=== PATIENT | female | born 1995 | race African-American/Black ===

== ENCOUNTER 2017-11-03 11:28 | Inpatient (IN) ==
[2017-11-03 13:14] LABS: Apearance,Urine CLEAR (Clear); Bacteria,Urine Occasional /HPF (Few); Bilirubin,Urine Negative (Negative); Blood, Urine Negative (Negative); Glucose,Urine (UA) Negative (Negative); Ketones,Urine Negative (Negative); Nitrite,Urine Negative (Negative); Protein,Urine Negative; RBC,Urine <1 /HPF (0-4); Squamous Epithelial Cell,Urine Occasional /HPF (0-10); Urine Color Straw (Yellow); Urine Specific Gravity 1.001 (1.001-1.035); Urine Urobilinogen < 2.0 EU/DL (0.2-1.0)
[2017-11-03] MEDS ORDERED: LACTATED RINGERS 1,000 ML IV ONE (14:00)
[2017-11-03] MEDS ORDERED: BUTORPHANOL 2 MG/ML VIAL IV ONE (14:11)
[2017-11-03] MEDS: LACTATED RINGERS 1,000 ML IV SCH (15:25)
[2017-11-03] MEDS: BUTORPHANOL 2 MG/ML VIAL IV PRN (19:25)
[2017-11-04] MEDS ORDERED: ONDANSETRON 4 MG/2 ML VIAL IV PRN ×3 (00:12→21:13)
[2017-11-04] MEDS ORDERED: ceFAZolin 1,000 MG in SYRINGE 1 EACH IV SCH (01:30)
[2017-11-04] MEDS ORDERED: AMPICILLIN INJ 2,000 MG in SODIUM CHLORIDE 0.9% 100 ML IV ONE (02:00)
[2017-11-04] MEDS ORDERED: OXYTOCIN/LR 20 UNIT/1,000 ML BAG IV SCH (02:00)
[2017-11-04 02:06] LABS: Basophils % 0.5 % (0.0-0.8); Eosinophils # 0.1 10*3/uL (0.0-0.87); Eosinophils % 1.3 % (0.00-10.9); Hematocrit 37.6 VOL% (35.7-47.0); Immature Granulocytes % 1.4 %; Immature Granulocytes Absolute 0.11 #; Lymphocytes # 1.5 10*3/uL (1.4-4.0); Lymphocytes % 18.5 % (21.3-54.2); Mean Corpuscular HGB Conc 34.6 GM/DL (32-36); Mean Corpuscular Hemoglobin 31 PG (27-34); Mean Corpuscular Volume 88.5 FL (87-102); Mean Platelet Volume 10.4 FL (9.6-12.0); Monocytes # 1.2 10*3/uL (0.11-0.8); Monocytes % 14.6 % (1.7-12.7); Neutrophils % 63.7 % (38.7-73.9); Platelet Count 240 T/CUMM (130-400); Red Blood Count 4.25 MC/CUMM (3.8-5.5); Red Cell Distribution Width 13.6 % (9.3-17.3); White Blood Count 7.9 T/CUMM (4-12)
[2017-11-04 02:12] LABS: Alanine Aminotransferase 16 U/L (13-56); Albumin 2.7 G/DL (3.4-5.0); Alkaline Phosphatase 246 U/L (45-117); Aspartate Amino Transferase 18 U/L (0-37); Bilirubin,Total < 0.39 MG/DL (0.2-1.0); Blood Urea Nitrogen 3 MG/DL (7-18); Calcium 8.7 MG/DL (8.5-10.1); Glucose 94 MG/DL (74-106); Osmolality,Calculated 279.1 MOS/KG (273-304); Potassium 2.6 MMOL/L (3.5-5.1); Sodium 142 MMOL/L (136-145); Total Protein 5.7 G/DL (6.4-8.3)
[2017-11-04] MEDS: BUTORPHANOL 2 MG/ML VIAL IV PRN ×2 (03:10→06:53)
[2017-11-04] MEDS: AMPICILLIN INJ 1,000 MG in SODIUM CHLORIDE 0.9% 100 ML IV SCH ×3 (05:56→14:22)
[2017-11-04] MEDS: LACTATED RINGERS 1,000 ML IV SCH (05:57)
[2017-11-04] MEDS ORDERED: LACTATED RINGERS 1,000 ML IV ONE (07:28)
[2017-11-04] MEDS ORDERED: FAMOTIDINE 20 MG/2 ML VIAL IV ONE (07:28)
[2017-11-04] MEDS ORDERED: ONDANSETRON 4 MG/2 ML VIAL IV ONE (07:28)
[2017-11-04] MEDS ORDERED: CITRIC ACID/SODIUM CITRATE 30 ML UDCUP PO ONE (07:28)
[2017-11-04] MEDS ORDERED: PROMETHAZINE 25 MG/1 ML VIAL IM ONE (07:28)
[2017-11-04] MEDS ORDERED: hydrOXYzine HCL 25 MG/1 ML VIAL IM PRN (07:28)
[2017-11-04] MEDS ORDERED: ePHEDrine 50 MG/ML AMP IV PRN (07:28)
[2017-11-04] MEDS ORDERED: diphenhydrAMINE 50 MG/1 ML VIAL IV PRN ×2 (07:28)
[2017-11-04] MEDS ORDERED: fentaNYL 2 MCG/ROPIV 0.2% EPID 150 ML EPIDURAL SCH (07:30)
[2017-11-04 10:28] LABS: Amorphous Crystals,Urine Occasional /HPF (Few); Apearance,Urine CLEAR (Clear); Bacteria,Urine Occasional /HPF (Few); Bilirubin,Urine Negative (Negative); Blood, Urine Small mg/dL (Negative); Glucose,Urine (UA) Negative (Negative); Ketones,Urine Negative (Negative); Mucus,Urine Occasional /LPF (Occasional); Nitrite,Urine Negative (Negative); Protein,Urine Negative; RBC,Urine 3 /HPF (0-4); Squamous Epithelial Cell,Urine Occasional /HPF (0-10); Urine Color Straw (Yellow); Urine Specific Gravity 1.002 (1.001-1.035); Urine Urobilinogen < 2.0 EU/DL (0.2-1.0); WBC,Urine 2 /HPF (0-6)
[2017-11-04] MEDS ORDERED: ceFAZolin 2,000 MG in PREMIX 1 EACH IV ONE (16:34)
[2017-11-04] MEDS ORDERED: OXYTOCIN/LR 30 UNIT/1,000 ML BAG IV ONE (16:37)
[2017-11-04] MEDS ORDERED: OXYTOCIN 10 UNIT/ML VIAL IM ONE (16:37)
[2017-11-04] MEDS ORDERED: MIDAZOLAM 2 MG/2 ML VIAL ONE (18:01)
[2017-11-04] MEDS ORDERED: fentaNYL 100 MCG/2 ML VIAL ONE (18:01)
[2017-11-04] MEDS ORDERED: KETAMINE 500 MG/10 ML VIAL ONE (18:02)
[2017-11-04] MEDS ORDERED: MORPHINE 10 MG/10 ML VIAL ONE (18:02)
[2017-11-04] MEDS ORDERED: LIDOCAINE MPF 2% /EPI 20 ML VIAL ONE (18:02)
[2017-11-04 18:05] LABS: Cord Arterial Blood HCO3 26.7 MMOL/L
[2017-11-04 18:08] LABS: Cord Venous Blood HCO3 22.2 MMOL/L; Cord Venous Blood PCO2 41.4 MMHG; Cord Venous Blood PO2 34.1
[2017-11-04] MEDS ORDERED: HYDROmorphone 2 MG/1 ML VIAL IV PRN (19:36)
[2017-11-04] MEDS ORDERED: LACTATED RINGERS 1,000 ML IV SCH (21:13)
[2017-11-04] MEDS ORDERED: ACETAMINOPHEN 325 MG TABLET PO PRN (21:13)
[2017-11-04] MEDS ORDERED: OXYTOCIN/LR 20 UNIT/1,000 ML BAG IV ONE (21:13)
[2017-11-04] MEDS ORDERED: RHO(D) IMMUNE GLOBULIN 300 MCG SYRINGE IM ONE (21:13)
[2017-11-04] MEDS ORDERED: IBUPROFEN 800 MG TABLET PO PRN (21:13)
[2017-11-04] MEDS ORDERED: PROMETHAZINE INJ 25 MG in SODIUM CHLORIDE 0.9% 50 ML IV PRN (22:11)
[2017-11-04] MEDS ORDERED: MEPERIDINE 25 MG/1 ML VIAL IV PRN (22:12)
[2017-11-04] MEDS ORDERED: PROMETHAZINE 25 MG/1 ML VIAL IM PRN (22:13)
[2017-11-04] MEDS: DOCUSATE SODIUM 100 MG CAPSULE PO SCH (22:40)
[2017-11-05 01:10] LABS: Basophils # 0.1 10*3/uL (0.0-0.2); Basophils % 0.2 % (0.0-0.8); Hematocrit 32.4 VOL% (35.7-47.0); Hemoglobin 11.1 GM/DL (12.0-16.0); Immature Granulocytes % 1.5 %; Lymphocytes # 1.3 10*3/uL (1.4-4.0); Lymphocytes % 6.7 % (21.3-54.2); Mean Corpuscular HGB Conc 34.3 GM/DL (32-36); Mean Corpuscular Hemoglobin 31 PG (27-34); Mean Corpuscular Volume 89.3 FL (87-102); Mean Platelet Volume 10.2 FL (9.6-12.0); Monocytes # 1.6 10*3/uL (0.11-0.8); Monocytes % 7.8 % (1.7-12.7); Neutrophils # 16.8 10*3/uL (1.4-7.4); Neutrophils % 83.8 % (38.7-73.9); Platelet Count 231 T/CUMM (130-400); Red Blood Count 3.63 MC/CUMM (3.8-5.5); Red Cell Distribution Width 13.9 % (9.3-17.3); White Blood Count 20.1 T/CUMM (4-12)
[2017-11-05] MEDS ORDERED: KETOROLAC 30 MG/1 ML VIAL IV PRN (01:18)
[2017-11-05 01:38] LABS: Albumin 2.4 G/DL (3.4-5.0); Bilirubin,Total 0.5 MG/DL (0.2-1.0); Calcium 8.8 MG/DL (8.5-10.1); Osmolality,Calculated 295.9 MOS/KG (273-304); Potassium 2.9 MMOL/L (3.5-5.1); Total Protein 5.3 G/DL (6.4-8.3)
[2017-11-05] MEDS: ceFAZolin 1,000 MG in SYRINGE 1 EACH IV SCH ×2 (01:42→09:10)
[2017-11-05 02:12] LABS: Lymphocytes 11 % (20-55); Platelet Estimate Normal; Segmented Neutrophils 84 % (50-85); Total Cells Counted 100
[2017-11-05] MEDS ORDERED: METOCLOPRAMIDE 10 MG/2 ML VIAL IV SCH (08:00)
[2017-11-05] MEDS: DOCUSATE SODIUM 100 MG CAPSULE PO SCH ×2 (09:06→21:42)
[2017-11-05] MEDS: MAGNESIUM HYDROXIDE SUSP 30 ML UDCUP PO PRN ×2 (09:07→21:43)
[2017-11-05] MEDS: SIMETHICONE CHEW 80 MG TABLET PO PRN ×2 (09:07→21:43)
[2017-11-05] MEDS: MULTIVITAMIN (PRENATAL) TABLET PO SCH (09:30)
[2017-11-05 10:39] LABS: Basophils % 0.2 % (0.0-0.8); Eosinophils % 0.1 % (0.00-10.9); Hematocrit 27.4 VOL% (35.7-47.0); Hemoglobin 9.5 GM/DL (12.0-16.0); Immature Granulocytes Absolute 0.17 #; Lymphocytes # 1.8 10*3/uL (1.4-4.0); Mean Corpuscular HGB Conc 34.7 GM/DL (32-36); Mean Corpuscular Hemoglobin 31 PG (27-34); Mean Corpuscular Volume 89.3 FL (87-102); Mean Platelet Volume 10.2 FL (9.6-12.0); Monocytes # 1.4 10*3/uL (0.11-0.8); Monocytes % 8.3 % (1.7-12.7); Neutrophils # 13.3 10*3/uL (1.4-7.4); Neutrophils % 79.4 % (38.7-73.9); Platelet Count 211 T/CUMM (130-400); Red Blood Count 3.07 MC/CUMM (3.8-5.5); Red Cell Distribution Width 14.1 % (9.3-17.3); White Blood Count 16.7 T/CUMM (4-12)
[2017-11-05] MEDS ORDERED: MAGNESIUM CITRATE 300 ML BOTTLE PO ONE (17:30)
[2017-11-05] MEDS: POTASSIUM CHLORIDE 20 MEQ TABLET PO SCH (21:42)
[2017-11-05] MEDS: FERROUS SULFATE 325 MG TABLET PO SCH (21:43)
[2017-11-06] MEDS ORDERED: BISACODYL 10 MG SUPP RECTAL PRN (06:52)
[2017-11-06 08:01] VITALS: BP 134/79
[2017-11-06] MEDS: DOCUSATE SODIUM 100 MG CAPSULE PO SCH (08:08)
[2017-11-06] MEDS: POTASSIUM CHLORIDE 20 MEQ TABLET PO SCH ×2 (08:08→09:44)
[2017-11-06] MEDS: FERROUS SULFATE 325 MG TABLET PO SCH (08:08)
[2017-11-06] MEDS: MULTIVITAMIN (PRENATAL) TABLET PO SCH ×2 (08:08→09:44)
[2017-11-06] MEDS ORDERED: INFLUENZA VIRUS VACCINE 0.5 ML SYRINGE IM ONE (10:45)
[2017-11-06] MEDS ORDERED: DIPH/TET/ACEL PERT BOOSTER VACCINE 0.5 ML VIAL IM ONE (10:45)
== END 2017-11-06 12:15 | disposition home or self-care (01) | DRG 540 ==
LOC: N.LD 11:28 → N.LDOUT 11:28 → N.LD 17:22 → N.OB 11-04 21:10
PROVIDERS: ADMIT Obstetrics & Gynecology; ATTEND Obstetrics & Gynecology
PROC: LDCSECT (ICD-10-PCS; 2017-11-04 17:00)

== ENCOUNTER 2021-06-26 05:51 | Inpatient (IN) ==
[2021-06-26] MEDS ORDERED: FAMOTIDINE 20 MG/2 ML VIAL IV ONE (06:03)
[2021-06-26] MEDS ORDERED: CITRIC ACID/SODIUM CITRATE 30 ML UDCUP PO ONE (06:03)
[2021-06-26] MEDS ORDERED: LACTATED RINGERS 1,000 ML IV ONE (06:05)
[2021-06-26] MEDS ORDERED: PROMETHAZINE 25 MG/1 ML VIAL IM PRN (06:05)
[2021-06-26] MEDS ORDERED: diphenhydrAMINE 50 MG/1 ML VIAL IV PRN ×2 (06:05)
[2021-06-26] MEDS ORDERED: hydrOXYzine HCL 25 MG/1 ML VIAL IM PRN (06:05)
[2021-06-26] MEDS ORDERED: ePHEDrine 50 MG/ML VIAL IV PRN (06:05)
[2021-06-26] MEDS ORDERED: miSOPROStoL 200 MCG TABLET ONE (06:11)
[2021-06-26] MEDS ORDERED: TRANEXAMIC ACID 1,000 MG/10 ML VIAL ONE (06:11)
[2021-06-26] MEDS ORDERED: METHYLERGONOVINE 0.2 MG/1 ML AMP ONE (06:12)
[2021-06-26] MEDS ORDERED: SODIUM CHLORIDE 0.9% 0 ML IV ONE (06:12)
[2021-06-26] MEDS ORDERED: CARBOPROST TROMETHAMINE 250 MCG/ML AMP IM ONE (06:12)
[2021-06-26 06:25] LABS: Basophils % 0.4 % (0.0-0.8); Eosinophils # 0.1 10*3/uL (0.0-0.87); Eosinophils % 1.2 % (0.00-10.9); Hematocrit 32.6 VOL% (35.7-47.0); Hemoglobin 10.3 GM/DL (12.0-16.0); Immature Granulocytes % 2.4 %; Lymphocytes # 1.8 10*3/uL (1.4-4.0); Lymphocytes % 21.5 % (21.3-54.2); Mean Corpuscular HGB Conc 31.6 GM/DL (32-36); Mean Corpuscular Volume 89.6 FL (87-102); Mean Platelet Volume 9.5 FL (9.6-12.0); Monocytes % 10.1 % (1.7-12.7); Neutrophils % 64.4 % (38.7-73.9); Platelet Count 242 T/CUMM (130-400); Red Blood Count 3.64 MC/CUMM (3.8-5.5); White Blood Count 8.2 T/CUMM (4-12)
[2021-06-26 06:55] LABS: Albumin 2.7 G/DL (3.4-5.0); Bilirubin,Total 0.4 MG/DL (0.20-1.00); Osmolality,Calculated 271.7 MOS/KG (273-304); Total Protein 6.5 G/DL (6.4-8.2)
[2021-06-26] MEDS ORDERED: ceFAZolin 2,000 MG/50 ML DUPLEX IV ONE (07:00)
[2021-06-26] MEDS ORDERED: OXYTOCIN/LR 20 UNIT/1,000 ML BAG IV ONE ×3 (07:30→09:28)
[2021-06-26] MEDS ORDERED: BUPIVACAINE SPINAL 0.75% 2 ML AMP SPINAL ONE (07:45)
[2021-06-26] MEDS ORDERED: ONDANSETRON 4 MG/2 ML VIAL ONE ×2 (07:45→08:25)
[2021-06-26] MEDS: LACTATED RINGERS 1,000 ML IV SCH ×3 (07:46→18:33)
[2021-06-26] MEDS ORDERED: PHENYLEPHRINE 1 MG/10 ML SYRINGE IV ONE ×2 (08:07→08:45)
[2021-06-26 08:35] LABS: Cord Venous Blood HCO3 22.7 MMOL/L; Cord Venous Blood PCO2 37.9 MMHG; Cord Venous Blood PO2 35.1
[2021-06-26 08:40] LABS: Bilirubin,Urine Negative (Negative); Blood, Urine Negative (Negative); Glucose,Urine (UA) Negative (Negative); Ketones,Urine 20 mg/dL (Negative); Mucus,Urine Occasional /LPF (Occasional); Nitrite,Urine Negative (Negative); Protein,Urine Negative; RBC,Urine <1 /HPF (0-4); Squamous Epithelial Cell,Urine Occasional /HPF (0-10); Urine Appearance CLEAR (Clear); Urine Color Yellow (Yellow); Urine Specific Gravity 1.012 (1.001-1.035); Urine Urobilinogen < 2.0 EU/DL (0.2-1.0)
[2021-06-26] MEDS ORDERED: KETOROLAC 30 MG/1 ML VIAL ONE ×2 (08:58)
[2021-06-26] MEDS ORDERED: MAGNESIUM HYDROXIDE SUSP 30 ML UDCUP PO PRN (08:59)
[2021-06-26] MEDS ORDERED: DIPH/TET/ACEL PERT BOOSTER VACCINE 0.5 ML VIAL IM ONE (08:59)
[2021-06-26] MEDS ORDERED: SIMETHICONE CHEW 80 MG TABLET PO PRN (08:59)
[2021-06-26] MEDS ORDERED: ACETAMINOPHEN 325 MG TABLET PO PRN (08:59)
[2021-06-26] MEDS ORDERED: LACTATED RINGERS 1,000 ML IV SCH (09:00)
[2021-06-26] MEDS ORDERED: oxyCODONE/ACETAMINOPHEN 5-325 MG TABLET PO PRN (09:01)
[2021-06-26] MEDS ORDERED: HYDROmorphone 2 MG/1 ML VIAL IV PRN (09:12)
[2021-06-26] MEDS: ONDANSETRON 4 MG/2 ML VIAL IV PRN ×2 (09:24→14:31)
[2021-06-26] MEDS: MULTIVITAMIN (PRENATAL) TABLET PO SCH (10:37)
[2021-06-26] MEDS: FERROUS SULFATE 325 MG TABLET PO SCH (10:38)
[2021-06-26] MEDS: DOCUSATE SODIUM 100 MG CAPSULE PO SCH ×2 (10:38→20:41)
[2021-06-26] MEDS: POTASSIUM CHLORIDE 20 MEQ TABLET PO PRN ×4 (14:31→20:41)
[2021-06-26] MEDS: oxyCODONE/ACETAMINOPHEN 5-325 MG TABLET PO PRN ×2 (14:31→20:41)
[2021-06-26] MEDS: ACETAMINOPHEN 500 MG TABLET PO SCH ×2 (14:50→18:18)
[2021-06-26] MEDS: KETOROLAC 30 MG/1 ML VIAL IV SCH ×2 (15:52→21:58)
[2021-06-26 16:13] LABS: Hematocrit 29.3 VOL% (35.7-47.0); Hemoglobin 9.5 GM/DL (12.0-16.0)
[2021-06-27] MEDS: ACETAMINOPHEN 500 MG TABLET PO SCH ×2 (00:20→06:59)
[2021-06-27] MEDS: KETOROLAC 30 MG/1 ML VIAL IV SCH (03:17)
[2021-06-27] MEDS: oxyCODONE/ACETAMINOPHEN 5-325 MG TABLET PO PRN ×4 (03:18→23:14)
[2021-06-27 05:00] LABS: Basophils % 0.3 % (0.0-0.8); Eosinophils # 0.1 10*3/uL (0.0-0.87); Eosinophils % 1.1 % (0.00-10.9); Hematocrit 24.6 VOL% (35.7-47.0); Hemoglobin 7.8 GM/DL (12.0-16.0); Immature Granulocytes % 1.1 %; Immature Granulocytes Absolute 0.11 #; Lymphocytes # 1.8 10*3/uL (1.4-4.0); Lymphocytes % 17.3 % (21.3-54.2); Mean Corpuscular HGB Conc 31.7 GM/DL (32-36); Mean Corpuscular Volume 88.8 FL (87-102); Mean Platelet Volume 10.1 FL (9.6-12.0); Monocytes % 10.2 % (1.7-12.7); Platelet Count 199 T/CUMM (130-400); Red Blood Count 2.77 MC/CUMM (3.8-5.5); White Blood Count 10.1 T/CUMM (4-12)
[2021-06-27] MEDS: DOCUSATE SODIUM 100 MG CAPSULE PO SCH ×2 (09:29→20:46)
[2021-06-27] MEDS: FERROUS SULFATE 325 MG TABLET PO SCH (09:30)
[2021-06-27] MEDS: MULTIVITAMIN (PRENATAL) TABLET PO SCH (09:30)
[2021-06-27] MEDS: IBUPROFEN 800 MG TABLET PO PRN (20:46)
[2021-06-28] MEDS: IBUPROFEN 800 MG TABLET PO PRN (06:19)
[2021-06-28] MEDS: oxyCODONE/ACETAMINOPHEN 5-325 MG TABLET PO PRN (07:33)
[2021-06-28] MEDS: MULTIVITAMIN (PRENATAL) TABLET PO SCH (08:37)
[2021-06-28] MEDS: DOCUSATE SODIUM 100 MG CAPSULE PO SCH (08:37)
[2021-06-28] MEDS: FERROUS SULFATE 325 MG TABLET PO SCH (08:37)
[2021-06-28 08:40] VITALS: BP 137/69
== END 2021-06-28 13:30 | disposition home or self-care (01) | DRG 540 ==
LOC: N.LD 05:51 → N.OB 12:20
PROVIDERS: ADMIT Obstetrics & Gynecology; ATTEND Obstetrics & Gynecology
PROC: LDCSECT (ICD-10-PCS; 2021-06-26 07:45)